=== PATIENT | male | born 1965 | race Caucasian/White ===

== ENCOUNTER 2019-01-04 07:51 | Day surgery (SDC) | payer BC, OTHER ==
--- NOTE | 2018-12-19 07:17 | CONS ---
DATE OF ADMISSION: 11/24/2015 DATE OF CONSULTATION: I thank you very much for this kind referral. HISTORY OF PRESENT ILLNESS: Mr. Jerald Alfonso is a 53-year-old male patient who has been referr ed to me for further evaluation of positive occult blood in stool. The patient has noticed a change in the bowel habit with constipation and has been taking fiber. She also has a history of colon poly p. Appetite is good and no weight loss. The patient also complains of upper abdominal pain, not com pletely responding to therapy with omeprazole. She has been taking baby aspirin a day. No history o f gallstones or liver disease. Not a hypertensive. Has diabetes. No heart disease, lung problem, o r kidney disease. SOCIAL HISTORY: Nonsmoker. No alcohol abuse. FAMILY HISTORY: No family history of gastrointestinal tract neoplasm. ALLERGIES: NO DRUG ALLERGIES. MEDICATIONS: 1. Omeprazole. 2. Metformin. 3. Aspirin 81 mg. PHYSICAL EXAMINATION: VITAL SIGNS: He is 5 feet 4 inches tall and weighs 175 pounds. HEART: Normal heart sounds. LUNGS: Clear. ABDOMEN: Soft, no masses. Normal bowel sounds. NEUROLOGIC: Normal neurological exam. IMPRESSION: 1. Positive occult blood in stool. 2. Change in the bowel habit. 3. History of colon polyps. 4. The patient needs screening colonoscopy. 5. Upper abdominal pain, not responding to therapy with omeprazole. 6. The patient is on baby aspirin a day. 7. Diabetes mellitus. PLAN 1. Screening colonoscopy. 2. Upper endoscopy for further evaluation of upper abdominal pain. The procedures and possible complications are well explained to the patient. He understands and cons ents to the procedures. I thank you once again. With warmest personal regards, Dictated By: COMFORT MILIAN/HAMILTON Conf#: [id number] DID#: [id number]
[~2019-01-04] VITALS: Ht 162.6 cm; Wt 72.0 kg
[~2019-01-04 07:51] MED LIST: BENAZEPRIL; FLUOXETINE HCL PO; OMEPRAZOLE PO
[2019-01-04 08:30] VITALS: Ht 162.6 cm; Wt 72.0 kg
[2019-01-04] MEDS ORDERED: METF500T24 PO (08:38)
[2019-01-04 08:55] VITALS: BP 128/76; PULSE 59; RESP 20
[2019-01-04] MEDS ORDERED: FENTAnyl 50 MCG/ML VIAL ONE (10:50)
[2019-01-04] MEDS ORDERED: MIDAZOLAM 1 MG/ML 2 ML INJ ONE ×2 (10:50)
== END 2019-01-04 14:06 | disposition home or self-care (01) ==
LOC: GIL 07:51
PROVIDERS: ATTEND Internal Medicine Gastroenterology
DX: Z12.11 Encounter for screening for malignant neoplasm of colon (principal); K29.30 Chronic superficial gastritis without bleeding; K64.8 Other hemorrhoids; K44.9 Diaphragmatic hernia without obstruction or gangrene; K21.9 Gastro-esophageal reflux disease without esophagitis; E11.9 Type 2 diabetes mellitus without complications; Z79.82 Long term (current) use of aspirin; Z79.84 Long term (current) use of oral hypoglycemic drugs
CPT/HCPCS: 43239; 45378; 82962; 88305; 88312; J2250; J3010